=== PATIENT | female | born 1965 | race Caucasian/White ===

== ENCOUNTER 2020-08-25 13:09 | Emergency (ER) | payer BC, SELFPAY ==
[2020-08-25 13:09] VITALS: BP 158/105; PULSE 89; RESP 20; TEMP 36.1; O2SAT 100; BMI 42.5
--- NOTE | 2020-08-25 14:06 | ED.DCSUM_ITS ---
History of Present Illness Chief Complaint: Upper Extremity Injury Detail of Chief Complaint: Pain over right scapula, no history of trauma Informant: Patient Onset: Weeks Context: Sudden Onset Timing: Intermittent Quality: Pain feels like there is a grabbing sensation Location: Right scapular region Current Severity: - - None Maximum Severity: Severe Worsened by: Movement Relieved by: Nothing specific Associated Symptoms: No associated symptoms Narrative: 55-year-old woman who presents with pain over the right scapular region that started approximately 1 week ago. She denies fever, chills night sweats. She denies paresthesia, anesthesia or motor weakness upper extremity. She denies cough, shortness of breath or pleuritic pain. She denies rash. There is no history of direct trauma. She has taken Aleve. She took 2 Aleve at 3:00 in the morning. She also been applying heat. She states she does a lot of overhead work and pushing and pulling. Prior similar symptoms: No Recent Illness/Hospitalization: No - Past Medical History (1) No significant past medical history Status: Acute Past Medical History - Allergies and Home Meds Allergies/Adverse Reactions: Allergies cortisone Adverse Reaction (Verified 08/25/20 13:09) Other Primary Care Physician: Care Physician,No Primary [Primary Care Provider] - Prior records reviewed: No Past Medical History: None Surgical History: noncontributory Lives: Alone Smoking Status: Former smoker Alcohol: None Drugs: None Review of Systems General: Denies: Chills, Fever, Malaise, Subjective, Sweats Eyes: Denies: Visual changes - bilaterally, Blurred Vision - bilaterally ENT: Denies: Rhinorrhea, Sore throat Cardiovascular: Denies: Chest pain, Palpitations, Heart racing Respiratory: Denies: Dyspnea, Cough, Sputum, Dyspnea on exertion, Orthopnea Musculoskeletal: Reports: Back pain. Denies: Myalgias, Arthralgias, Neck pain, Swelling, Extremity Pain Skin: Denies: Rash, Wounds Neurological: Denies: Headache, Numbness Hematologic: Denies: Easy bruising, Easy bleeding Allergy: Denies: Uticaria Physical Exam Vital Signs/Narrative: Vital Signs Temp Pulse Resp BP Pulse Ox 08/25/20 13:09 96.9 F L 89 20 H 158/105 H 100 Inital Vital Signs reviewed: Yes General: Well nourished, Well developed, Obese, No Acute Distress Head: Normocephalic, Atraumatic Eyes: Perrl, EOMI. Negative for: Pale conjunctiva, Scleral icterus Cardiovascular: Regular rate, Regular rhythm Respiratory: No distress, CTA bilaterally, Chest nontender Back: Nontender, Normal Inspection Extremities: Nontender, No edema, - - There is pain with movement of the right upper extremity. There is no discomfort with abduction past 90 degrees. Skin: Normal color, No rash, No Trauma. Negative for: Cyanosis, Diaphoresis, Jaundice Neurological: Alert, Oriented x3, Cranial nerves II-XII grossly intact, Normal Strength, Normal Sensation, - - Axillary, median, radial and ulnar function intact. Psychological: Normal affect Diagnostic/Tx/Re-eval - Medical Decision Making Patient has reproducible muscular pain. Will place on opiate analgesia since she has been taking Aleve every 12 hours with no improvement. She was instructed not to apply heat. Since she does not have a primary care physician she was referred to Dr. Goodson. ED Disposition - Plan for ED Patient: Disposition: Home or Assisted Living Diagnosis: Upper back pain on right side Instructions: ED Back Pain (Acute or Chronic) Prescriptions: Hydrocodone Bitart/Apap 5-325 [[place] 5MG-325MG] 1 tab PO Q6H PRN PRN 3 Days #10 tab PRN Reason: Pain Prescription Printed Referrals: Care Physician,No Primary [Primary Care Provider] - Salome Goodson MD [STAFF PHYSICIAN] - 3-5 Days if not improving
== END 2020-08-25 14:26 | disposition home or self-care (01) ==
LOC: ED 14:21
PROVIDERS: Emergency Provider Emergency Medicine
DX: M54.6 Pain in thoracic spine (principal); E66.9 Obesity, unspecified; Z87.891 Personal history of nicotine dependence
CPT/HCPCS: 99282